=== PATIENT | male | born 1960 | race Caucasian/White ===

== ENCOUNTER 2023-04-29 11:01 | Emergency (ER) | payer OTHER ==
[~2023-04-29] VITALS: Ht 175.3 cm; Wt 83.0 kg
[2023-04-29 11:14] VITALS: BP 154/96
[2023-04-29 11:15] VITALS: BP 152/92
[2023-04-29 11:30] VITALS: BP 149/97
[2023-04-29 11:46] VITALS: BP 154/89
[2023-04-29 12:00] VITALS: BP 143/95
[2023-04-29] MEDS ORDERED: NAPROXEN500 MG PO (13:05)
[2023-04-29 13:09] VITALS: BP 143/95
== END 2023-04-29 13:21 | disposition home or self-care (01) | DRG 556 ==
LOC: ED 11:01
DX: M25.571 Pain in right ankle and joints of right foot (principal)